=== PATIENT | female | born 1980 | race Two or more races ===

== ENCOUNTER → 2023-09-10 08:04 | Outpatient (REF) | payer OTHER, SELFPAY | LOC: WDC 08:04 | PROVIDERS: ATTENDING PHYSICIAN Family Medicine | DX: Z12.31 Encounter for screening mammogram for malignant neoplasm of breast (principal) | CPT/HCPCS: 77063; 77067 ==

== ENCOUNTER → 2023-11-25 10:02 | Outpatient (REF) | payer OTHER, SELFPAY | LOC: WDC 10:02 | PROVIDERS: ATTENDING PHYSICIAN Family Medicine | DX: N63.13 Unspecified lump in the right breast, lower outer quadrant (principal) | CPT/HCPCS: 76642; 77061; 77065 ==

== ENCOUNTER → 2024-09-13 06:53 | Outpatient (REF) | payer OTHER, SELFPAY | LOC: WDC 06:53 | PROVIDERS: ATTENDING PHYSICIAN Family Medicine | DX: Z12.31 Encounter for screening mammogram for malignant neoplasm of breast (principal) | CPT/HCPCS: 77063; 77067 ==